=== PATIENT | male | born 1985 | race Caucasian/White ===

== ENCOUNTER 2019-01-25 16:56 | Emergency (ER) | payer OTHER ==
[~2019-01-25 16:56] MED LIST: AUG875 PO; CEP500 PO; CET10 PO; IBU800 PO; LOR5 PO; PER PO; TRAM100T22 PO
--- NOTE | 2019-01-25 17:05 | ER Report ---
History and Physical Time Seen By MD: 17:02 HPI/ROS CHIEF COMPLAINT: Right hand pain HISTORY OF PRESENT ILLNESS: 33-year-old male patient presents to emergency room with complaint of right hand pain. Patient states he's been having pain for the past 4 days. Patient states that 6 weeks ago he had surgery on his right index finger for tendon injury and nerve injury. He states that he saw Dr. Johnson, orthopedic surgeon, who had performed the surgery and was told to follow-up in 10 weeks. He states this been doing fine until a few days ago when he started having pain to that hand. He states pain is significant. He states it has have a hard time sleeping. He has taken Lortab, Percocet all with no improvement in pain. Patient denies any fevers, chills, nausea, vomiting or diarrhea. REVIEW OF SYSTEMS: Respiratory: No cough, no dyspnea. Cardiovascular: No chest pain, no palpitations. Gastrointestinal: No vomiting, no abdominal pain. Musculoskeletal: As noted above Allergies: Coded Allergies: phenazopyridine HCl (Verified Allergy, Unknown, 11/25/16) Home Meds Active Scripts Gabapentin (GABAPENTIN) 300 Mg Capsule, 300 MG PO DIRECTED, #60 CAPSULE Take 1 tab twice a day tomorrow (01/26) then take 1 tab three times a day. Prov:RAUL GONZALEZ 01/25/19 Past Medical/Surgical History Patient denies pertinent past medical history. Patient has surgical history of right toe surgery and wrist surgery. Reviewed Nurses Notes: Yes Hx Smoking: No Hx Substance Use Disorder: No Hx Alcohol Use: No Constitutional Vital Sign - Last 24 Hours 01/25/19 01/25/19 01/25/19 01/25/19 16:56 17:00 17:03 18:19 Temp 98.9 Pulse ??? 75 Resp 16 B/P (MAP) 144/90 (108) 144/90 134/80 (98) Pulse Ox 90 O2 Delivery Room Air 01/25/19 01/25/19 01/25/19 01/25/19 18:26 18:30 18:30 19:00 Pulse 100 97 102 B/P (MAP) 115/68 (84) 115/68 (84) 136/84 (101) Pulse Ox 88 88 87 01/25/19 19:30 Pulse 95 B/P (MAP) 131/82 (98) Pulse Ox 90 Physical Exam General Appearance: The patient is alert, has no immediate need for airway protection and no current signs of toxicity. Respiratory: Chest is non tender, lungs are clear to auscultation. Cardiac: regular rate and rhythm Gastrointestinal: Abdomen is soft and non tender, no masses, bowel sounds normal. Musculoskeletal: Neck: Neck is supple and non tender. Extremities have full range of motion and are non tender. Skin: No rashes or lesions. DIFFERENTIAL DIAGNOSIS: After history and physical exam differential diagnosis was considered for postsurgical infection, inflammation, healing of the nerve which is resulting in increased impulses going to brain. Medical Decision Making Data Points Result Diagram: 01/25/19 1720 01/25/19 1720 Laboratory Hematology Test 01/25/19 17:20 White Blood Count 6.5 k/uL (4.5-11.0) Red Blood Count 5.43 M/uL (4.00-5.60) Hemoglobin 17.6 g/dL (14.0-18.0) Hematocrit 51.0 % (42.0-52.0) Mean Corpuscular Volume 94.0 fL (80.0-96.0) Mean Corpuscular Hemoglobin 32.5 pg (26.0-33.0) Mean Corpuscular Hemoglobin Concent 34.6 g/dL (32.0-36.0) Red Cell Distribution Width 12.8 % (11.5-14.5) Platelet Count 254 K/uL (150-450) Mean Platelet Volume 7.9 fL (7.2-11.1) Neutrophils (%) (Auto) 59.2 % (39.4-72.5) Lymphocytes (%) (Auto) 30.4 % (17.6-49.6) Monocytes (%) (Auto) 5.5 % (4.1-12.4) Eosinophils (%) (Auto) 4.1 % (0.4-6.7) Basophils (%) (Auto) 0.8 % (0.3-1.4) Nucleated RBC Relative Count (auto) 0.0 /100WBC Neutrophils # (Auto) 3.8 K/uL (2.0-7.4) Lymphocytes # (Auto) 2.0 K/uL (1.3-3.6) Monocytes # (Auto) 0.4 K/uL (0.3-1.0) Eosinophils # (Auto) 0.3 K/uL (0.0-0.5) Basophils # (Auto) 0.1 K/uL (0.0-0.1) Nucleated RBC Absolute Count (auto) 0.00 K/uL Erythrocyte Sedimentation Rate 5 mm/HOUR (0-15) Chemistry Test 01/25/19 17:20 Sodium Level 142 mmol/L (137-145) Potassium Level 3.9 mmol/L (3.5-5.0) Chloride Level 105 mmol/L (98-107) Carbon Dioxide Level 21 mmol/L (22-30) Blood Urea Nitrogen 12 mg/dl (9-21) Creatinine 1.00 mg/dl (0.66-1.25) Glomerular Filtration Rate Calc > 60.0 Random Glucose 142 mg/dl (75-110) Calcium Level 9.1 mg/dl (8.4-10.2) Total Bilirubin 0.7 mg/dl (0.2-1.3) Aspartate Amino Transf (AST/SGOT) 56 U/L (0-35) Alanine Aminotransferase (ALT/SGPT) 82 U/L (0-56) Alkaline Phosphatase 64 U/L (0-126) C-Reactive Protein < 0.5 mg/dl (<1.0) Total Protein 7.5 g/dl (6.3-8.2) Albumin 4.5 g/dl (3.5-5.0) EKG/Imaging Imaging CT FOREARM W/ RT INDICATION: Status post surgery. Pain radiating from hand to form for 3 days. COMPARISON: None available FINDINGS: Multiple axial images of the right forearm were obtained after intravenous contrast 75 mL Isovue 370. Sagittal and coronal reconstructions were obtained. One of the following dose optimization techniques was utilized in the performance of this exam: automated exposure control; adjustment of the mA and/or kV according to the patient's size; or use of an iterative reconstruction technique. Specific details can be referenced in the facility's radiology CT exam operational policy. Bony structures show no fractures, bony erosions or periosteal abnormality. No bony lesions besides a small bone island in the distal humerus. The soft tissues show no fluid collection or mass. The fat and muscle planes are maintained. The visualized tendons are unremarkable. The vessels all appear patent. Cardiovascular regions appear within normal limits. IMPRESSION: No acute or focal abnormality. Report Dictated By: Dylan Moreno at 01/25/2019 7:34 PM Report E-Signed By: Dylan Moreno at 01/25/2019 7:[address] HAND W/ RT INDICATION: Recent hand surgery. Pain from the hand to the forearm. COMPARISON: None available FINDINGS: Multiple axial images of the right hand were obtained 2 mm segments after intravenous contrast of 75 mL Isovue-370. No reaction to contrast is noted. Sagittal and coronal reconstructions were obtained. One of the following dose optimization techniques was utilized in the performance of this exam: automated exposure control; adjustment of the mA and/or kV according to the patient's size; or use of an iterative reconstruction technique. Specific details can be referenced in the facility's radiology CT exam operational shelli icy. Bony structures show no fractures. Small bone island seen in the proximal capitellum. No other bony lesions. Previous avulsion of the ulnar styloid. No periosteal abnormality or bony erosions. The soft tissues of the second proximal finger does show inflammatory changes without fluid collection or mass. The vasculature appears to be patent. The tendons appear to be intact. The remaining soft tissues show no inflammatory changes, masses or fluid collection. The vessels appear to be patent. The fat and muscle planes are maintained. The visualized tendons are unremarkable. IMPRESSION: Mild inflammatory changes to the medial soft tissues of the second finger. This may be postsurgical. There is no fluid collection or mass. No other focal abnormality. The remainder the exam is unremarkable. Report Dictated By: Dylan oMreno at 01/25/2019 7:40 PM Report E-Signed By: Dylan Moreno at 01/25/2019 7:48 PM ED Course/Re-evaluation ED Course Patient was admitted to exam room, history of physical were obtained. Differential diagnoses were considered. On examination lungs are clear, heart is regular, abdomen soft nontender. Patient doesn't have any focal discomfort to palpation. An IV was started, a CBC, CMP, CRP, ESR were done. The lab results were unremarkable. A CT scan of the right hand and forearm was done. That showed some inflammation around the second finger. On that there were no acute findings. I discussed the findings with the patient. His my belief that with the pain with patient describing that he has inflammation this going along the nerve from that index finger down to his elbow. However those likely secondary surgery took about 6 weeks for the nerve to generate enough to start sending signals. I discussed with the patient. With her not having any improvement in his pain with his pain medication we'll go ahead and start him on gabapentin. Patient was given a dose here in the emergency room. He is to follow-up with Dr. Johnson this week. He is to take one tablet twice a day tomorrow and then one tablet 3 times a day the day after that. Patient verbalized understanding and agreement with plan. Decision to Disposition Date: Jan 25, 2019 Decision to Disposition Time: 20:02 Depart Departure Latest Vital Signs Vital Signs Date Time Temp Pulse Resp B/P (MAP) Pulse Ox O2 Delivery O2 Flow Rate FiO2 01/25/19 19:30 95 131/82 (98) 90 01/25/19 17:03 98.9 16 Room Air Impression: Primary Impression: Right hand pain Additional Impression: Neuropathic pain Condition: Improved Disposition: HOME OR SELF-CARE New Scripts Gabapentin (GABAPENTIN) 300 Mg Capsule 300 MG PO DIRECTED, #60 CAPSULE Take 1 tab twice a day tomorrow (01/26) then take 1 tab three times a day. Prov: RAUL GONZALEZ 01/25/19 Patient Instructions: GENERAL ER DISCHARGE INSTRUCTIONS Additional Instructions: Limit activity by pain. Take the medication as prescribed, be careful with work as it may make you drowsey. Get plenty of rest. Follow up with Dr. Johnson, call tomorrow to make an appointment. Return to the ER if condition worsens. You may take your normal pain medication for breakthrough pain. You may take Ibuprofen as needed for pain. Problem Qualifiers RAUL GONZALEZ Jan 25, 2019 17:05
[2019-01-25 17:29] LABS: PLATELET COUNT, AUTOMATED 254 K/uL (150-450)
[2019-01-25] MEDS ORDERED: IOPAMIDOL 76% 100 ML INFUS BTL 100 ML ONE (18:14)
[2019-01-25 19:30] VITALS: BP 131/82
--- NOTE | 2019-01-25 19:55 | RADIOLOGY IMAGING REPORT ---
FACILITY: [facility] - [place] PATIENT NAME: Anurag Perez : 1985 MR: [id number] V: [id number] EXAM DATE: ORDERING PHYSICIAN: RAUL GONZALEZ TECHNOLOGIST: Location: [facility] [place] Patient: Anurag Perez : 1985 Visit/Account:[id number] Date of Sevice: 01/25/2019 CT HAND W/ RT INDICATION: Recent hand surgery. Pain from the hand to the forearm. COMPARISON: None available FINDINGS: Multiple axial images of the right hand were obtained 2 mm segments after intravenous con trast of 75 mL Isovue-370. No reaction to contrast is noted. Sagittal and coronal reconstructions wer e obtained. One of the following dose optimization techniques was utilized in the performance of thi s exam: automated exposure control; adjustment of the mA and/or kV according to the patient's size; o r use of an iterative reconstruction technique. Specific details can be referenced in the facility's radiology CT exam operational policy. Bony structures show no fractures. Small bone island seen in the proximal capitellum. No other bony l esions. Previous avulsion of the ulnar styloid. No periosteal abnormality or bony erosions. The soft tissues of the second proximal finger does show inflammatory changes without fluid collection or mass . The vasculature appears to be patent. The tendons appear to be intact. The remaining soft tissues s how no inflammatory changes, masses or fluid collection. The vessels appear to be patent. The fat and muscle planes are maintained. The visualized tendons are unremarkable. IMPRESSION: Mild inflammatory changes to the medial soft tissues of the second finger. This may be po stsurgical. There is no fluid collection or mass. No other focal abnormality. The remainder the exam is unremarkable. Report Dictated By: Dylan Moreno at 01/25/2019 7:40 PM Report E-Signed By: Dylan Moreno at 01/25/2019 7:48 PM WSN:[id number]
--- NOTE | 2019-01-25 19:56 | RADIOLOGY IMAGING REPORT ---
FACILITY: [facility] PATIENT NAME: Anurag Perez : 1985 MR: [id number] V: [id number] EXAM DATE: ORDERING PHYSICIAN: RAUL GONZALEZ TECHNOLOGIST: Location: [facility] - [place] Patient: Anurag Perez : 1985 Visit/Account:[id number] Date of Sevice: 01/25/2019 CT FOREARM W/ RT INDICATION: Status post surgery. Pain radiating from hand to form for 3 days. COMPARISON: None available FINDINGS: Multiple axial images of the right forearm were obtained after intravenous contrast 75 mL Isovue 370. Sagittal and coronal reconstructions were obtained. One of the following dose optimizat ion techniques was utilized in the performance of this exam: automated exposure control; adjustment o f the mA and/or kV according to the patient's size; or use of an iterative reconstruction technique. Specific details can be referenced in the facility's radiology CT exam operational policy. Bony structures show no fractures, bony erosions or periosteal abnormality. No bony lesions besides a small bone island in the distal humerus. The soft tissues show no fluid collection or mass. The fat and muscle planes are maintained. The visualized tendons are unremarkable. The vessels all appear pat ent. Cardiovascular regions appear within normal limits. IMPRESSION: No acute or focal abnormality. Report Dictated By: Dylan Moreno at 01/25/2019 7:34 PM Report E-Signed By: Dylan Moreno at 01/25/2019 7:48 PM [id number]
[2019-01-25] MEDS ORDERED: GABAPENTIN 300 MG CAP PO ONE (20:00)
[2019-01-25] MEDS ORDERED: GABA-549 PO (20:03)
== END 2019-01-25 20:21 | disposition home or self-care (01) ==
LOC: ER 17:01
DX: M79.641 Pain in right hand (principal)
CPT/HCPCS: 73201; 85025; 85651; 86140; 99284; Q9967; 82040; 82247; 82310; 82374; 82435; 82565; 82947; 84075; 84132; 84155; 84295; 84450; 84460; 84520